=== PATIENT | male | born 1960 | race Caucasian/White ===

== ENCOUNTER 2019-07-14 07:40 | Day surgery (SDC) | payer BC ==
[~2019-07-14 07:40] MED LIST: Lactated Ringers 1,000 ML IV SCH; Sodium Chloride 0.9% 10 ML SDV IV PRN; Sodium Chloride 0.9% 10 ML Syringe FLUSH PRN; Sodium Chloride 0.9% 2.5 ML Syringe FLUSH PRN; Sugammadex Sodium 200 MG/2 ML VIAL ONE
[2019-07-14] MEDS ORDERED: Labetalol 100 MG/20 ML MDV IVPUSH ONE (08:37)
--- NOTE | 2019-07-14 08:46 | PCM.PREANE ---
Preanesthetic Assessment - Anesthesia/Transfusion/Family Hx Anesthesia History: Prior Anesthesia Without Reaction Family History of Anesthesia Reaction: No Transfusion History: No Prior Transfusion(s) - Review of Systems General: No Symptoms Pulmonary: No Symptoms Cardiovascular: No Symptoms Gastrointestinal: No Symptoms Neurological: No Symptoms Other: Reports: None - Physical Assessment Vital Signs: Last Vital Signs Temp 97.0 F 07/14/19 08:00 Pulse 107 H 07/14/19 08:00 Resp 16 07/14/19 08:00 BP 151/108 H 07/14/19 08:15 Pulse Ox 94 L 07/14/19 08:00 Height: 6 ft 1 in Weight: 132.903 kg ASA Class: 3 Mental Status: Alert & Oriented x3 Airway Class: Mallampati = 2 Dentition: Reports: Normal Dentition ROM/Head Extension: Full Lungs: Clear to Auscultation, Normal Respiratory Effort Cardiovascular: Regular Rate, Regular Rhythm - Allergies Allergies/Adverse Reactions: Allergies Allergy/AdvReac Type Severity Reaction Status Date / Time No Known Allergies Allergy Verified 07/08/19 09:17 - Anesthesia Plan Pre-Op Medication Ordered: Other (labetalol 20 mg iv) - Acknowledgements Anesthesia Type Planned: General Anesthesia Pt an Appropriate Candidate for the Planned Anesthesia: Yes Alternatives and Risks of Anesthesia Discussed w Pt/Guardian: Yes Pt/Guardian Understands and Agrees with Anesthesia Plan: Yes Additional Comments: willian prob list: htn- stopped lisinopril yest noon, diastolic BPs this am 97-110 on multiple readings. hr about 100 so fiona use labetalol to rx htn in pre op holding gout gerd/hh recurrant renal stones obesity with bmi=38 PLAN: pre op treatment of htn, GET PreAnesthesia Questionnaire HEENT History: Reports: Other (See Below) Other HEENT History: wears glasses Cardiovascular History: Reports: Hypertension Respiratory History: Reports: Other (See Below) Other Respiratory History: "may have sleep apnea but have not been tested" Gastrointestinal History: Reports: GERD Genitourinary History: Reports: Renal Calculus Musculoskeletal History: Reports: Back Pain, Chronic, Gout Other Musculoskeletal History: hx of back injury, 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 Neurological History: Reports: Neuropathy, Peripheral Psychiatric History: Reports: Anxiety, Depression Endocrine/Metabolic History: Reports: Obesity/BMI 30+ Hematologic History: Reports: Anemia Immunologic History: Reports: None Oncologic (Cancer) History: Reports: None Dermatologic History: Reports: None - Past Surgical History Head Surgeries/Procedures: Reports: None HEENT Surgical History: Reports: None Cardiovascular Surgical History: Reports: None Respiratory Surgical History: Reports: None GI Surgical History: Reports: None Male Surgical History: Reports: Kidney Stone Extraction Endocrine Surgical History: Reports: None Neurological Surgical History: Reports: Lumbar Spine Other Neurological Surgeries/Procedures: hx back surgery Musculoskeletal Surgical History: Reports: Knee Replacement Other Musculoskeletal Surgeries/Procedures:: lt knee replacement Oncologic Surgical History: Reports: None Dermatological Surgical History: Reports: None - SUBSTANCE USE Smoking Status *Q: Never Smoker - HOME MEDS Home Medications: Home Meds Allopurinol [Zyloprim] 300 mg PO DAILY 07/08/19 [History] Cholecalciferol (Vitamin D3) [Vitamin D3] 5,000 units PO DAILY 07/08/19 [History ] Ferrous Sulfate [Iron] 325 mg PO DAILY 07/08/19 [History] Gemfibrozil [Lopid] 600 mg PO BID 07/08/19 [History] Lisinopril 20 mg PO DAILY 07/08/19 [History] Niacin 500 mg PO DAILY 07/08/19 [History] Omeprazole 40 mg PO DAILY 07/08/19 [History] - CURRENT (IN HOUSE) MEDS Current Meds: Current Medications Lactated Ringer's (Ringers, Lactated) 1,000 mls @ 100 mls/hr IV ASDIRECTED GURU Sodium Chloride (Saline Flush) 10 ml FLUSH ASDIRECTED PRN PRN Reason: Keep Vein Open Sodium Chloride (Saline Flush) 2.5 ml FLUSH ASDIRECTED PRN PRN Reason: Keep Vein Open Sodium Chloride (Normal Saline) 10 ml IV ASDIRECTED PRN PRN Reason: IV Use Discontinued Medications Acetaminophen (Ofirmev) Confirm Administered Dose 100 mls @ as directed IV .STK- MED ONE Stop: 07/14/19 07:36 Labetalol HCl (Normodyne) 20 mg IVPUSH ONETIME ONE; Protocol Stop: 07/14/19 08:38 Sugammadex Sodium ([place]ridion) Confirm Administered Dose 200 mg .ROUTE .STK-MED ONE Stop: 07/14/19 07:36
[2019-07-14] MEDS ORDERED: Ondansetron 4 MG/2 ML SDV ONE (08:49)
[2019-07-14] MEDS ORDERED: fentaNYL 100 MCG/2 ML SDV ONE (08:49)
[2019-07-14] MEDS ORDERED: Propofol 200 MG/20 ML SDV ONE (08:49)
[2019-07-14] MEDS ORDERED: Midazolam 1 MG/ML 2 ML SDV ONE (08:50)
[2019-07-14] MEDS ORDERED: Glycopyrrolate 0.2 MG/ML SDV ONE (08:50)
[2019-07-14] MEDS ORDERED: Ketorolac 30 MG/ML SDV ONE (08:50)
[2019-07-14] MEDS ORDERED: Rocuronium 100 MG/10 ML Syringe ONE (08:50)
[2019-07-14] MEDS ORDERED: Phenylephrine/Normal Saline 100 MCG/ML 10 ML Syringe ONE (09:47)
[2019-07-14] MEDS ORDERED: ePHEDrine 50 MG/ML SDV ONE ×2 (09:50→10:04)
[2019-07-14] MEDS ORDERED: Morphine 4 MG/ML Syringe IVPUSH ONE (10:15)
--- NOTE | 2019-07-14 11:03 | PCM48HPAN ---
Post Anesthesia Note - EVALUATION WITHIN 48HRS OF ANESTHETIC Vital Signs in Normal Range: Yes Patient Participated in Evaluation: Yes Respiratory Function Stable: Yes Airway Patent: Yes Cardiovascular Function Stable: Yes Hydration Status Stable: Yes Pain Control Satisfactory: Yes Nausea and Vomiting Control Satisfactory: Yes Mental Status Recovered: Yes Vital Signs: Last Vital Signs Temp 97.7 F 07/14/19 10:30 Pulse 82 07/14/19 10:50 Resp 11 L 07/14/19 10:50 BP 118/72 07/14/19 10:50 Pulse Ox 95 07/14/19 10:50
--- NOTE | 2019-07-14 11:03 | PCM.POSTAN ---
POST ANESTHESIA ASSESSMENT - MENTAL STATUS Mental Status: Alert, Oriented - VITAL SIGNS Vital Signs: Last Vital Signs Temp 97.7 F 07/14/19 10:30 Pulse 82 07/14/19 10:50 Resp 11 L 07/14/19 10:50 BP 118/72 07/14/19 10:50 Pulse Ox 95 07/14/19 10:50 - RESPIRATORY Respiratory Status: Respiratory Rate WNL, Airway Patent, O2 Saturation Stable - CARDIOVASCULAR CV Status: Pulse Rate WNL, Blood Pressure Stable - GASTROINTESTINAL GI Status: No Symptoms - POST OP HYDRATION Hydration Status: Adequate & Stable
--- NOTE | 2019-07-14 16:57 | OR ---
SURGEON: Sagar Monae M.D. DATE OF PROCEDURE: 07/14/2019 PREOPERATIVE DIAGNOSIS: 1.5 cm right renal pelvis stone. POSTOPERATIVE DIAGNOSIS: 1.5 cm right renal pelvis stone. PROCEDURE PERFORMED: ESWL. DESCRIPTION OF PROCEDURE: The patient was given general anesthesia on the lithotripsy table. The position of the patient was adjusted, so the stone could be treated and eventually received 2400 shocks. At the end of the treatment, the shadow of the stone changed significantly. However, the intensity of the stone is still light that it was not possible to clearly identify the extent to which fragmentation occurred. With that done, the procedure was terminated and the patient was sent to the recovery room in stable condition. PLAN: I will see him this coming Thursday. We will do a CT scan of the abdomen and pelvis without contrast and go from there. NIR / MILLI /[id number]
[2019-07-14] MEDS ORDERED: Gemfibrozil 600 MG Tab PO SCH (21:00)
[2019-07-15] MEDS ORDERED: Allopurinol 300 MG Tab PO SCH (09:00)
[2019-07-15] MEDS ORDERED: Non-Formulary Medication 1 Each (Omeprazole [Omeprazole] 40 MG) PO SCH (09:00)
[2019-07-15] MEDS ORDERED: NIACIN 500 MG PO SCH (09:00)
[2019-07-15] MEDS ORDERED: Ferrous Sulfate 325 MG Tab PO SCH (09:00)
[2019-07-15] MEDS ORDERED: Non-Formulary Medication 1 Each (Lisinopril 20 MG) PO SCH (09:00)
[2019-07-15] MEDS ORDERED: CHOLECALCIFEROL 5000 UNIT PO SCH (09:00)
== END 2019-07-14 11:35 | disposition home or self-care (01) ==
LOC: MW.SDS 07:40
PROVIDERS: ATTEND Urology
DX: N20.0 Calculus of kidney (principal); E78.5 Hyperlipidemia, unspecified; K21.9 Gastro-esophageal reflux disease without esophagitis; M10.9 Gout, unspecified; R97.20 Elevated prostate specific antigen [PSA]; Z79.899 Other long term (current) drug therapy
CPT/HCPCS: J0131; J1885; J2250; J2370; J2405; J2704; J3010; J3490

== ENCOUNTER 2019-07-14 20:42 | Emergency (ER) | payer BC ==
--- NOTE | 2019-07-14 21:26 | EDM.PDOC ---
ED HPI GENERAL MEDICAL PROBLEM - General Chief Complaint: Genitourinary Problem Stated Complaint: COMPLICATIONS AFTER SURGERY Time Seen by Provider: 07/14/19 21:25 Source of Information: Reports: Patient History Limitations: Reports: No Limitations - History of Present Illness INITIAL COMMENTS - FREE TEXT/NARRATIVE: HISTORY AND PHYSICAL: History of present illness: Patient is a 58-year-old male presents to the ED with complaint of difficulty urinating and gross blood in his urine following lithotripsy. Patient had procedure done today with Dr. Monae. He states he since has been drinking a lot of fluids. He is not urinating much and when he does urinate it is sania blood. Review of systems: As per history of present illness and below otherwise all systems reviewed and negative. Past medical history: As per history of present illness and as reviewed below otherwise noncontributory. Surgical history: As per history of present illness and as reviewed below otherwise noncontributory. Social history: No reported history of drug or alcohol abuse. Family history: As per history of present illness and as reviewed below otherwise noncontributory. Physical exam: General: Patient sitting comfortably in no acute distress and nontoxic appearing HEENT: Atraumatic, normocephalic, pupils reactive, negative for conjunctival pallor or scleral icterus, mucous membranes moist, throat clear, neck supple, nontender, trachea midline. No meningeal signs. Lungs: Clear to auscultation, breath sounds equal bilaterally, chest nontender. Heart: S1S2, regular, negative for clicks, rubs, or overt murmur. Abdomen: Soft, nondistended, nontender. Negative for masses or hepatosplenomegaly. Negative for costovertebral tenderness. No rigidity, rebound , guarding. Pelvis: Stable nontender. Genitourinary: Deferred. Rectal: Deferred. Extremities: Atraumatic, negative for cords or calf pain. Neurovascular unremarkable. Neuro: Awake, alert, oriented. Cranial nerves II through XII unremarkable. Cerebellum unremarkable. Motor and sensory unremarkable throughout. Exam nonfocal. Notes: Discussed with Dr. Monae, he advised patient have a lorenz catheter placed and to remove this tomorrow. He is not concerned about the hematuria as this is expected after lithotripsy and does not believe he needs antibiotics at this time. Diagnostics: CBC, CMP, UA Therapeutics: Lorenz cathete Prescriptions: Impression: Difficulty urinating s/p lithotripsy Plan: Remove lorenz catheter tomorrow as instructed Follow up with Dr. Monae Return to ED as needed as discussed Definitive disposition and diagnosis as appropriate pending reevaluation and review of above. Left Abdominal Pain Score (Numeric/FACES): 6 - Related Data Allergies Allergy/AdvReac Type Severity Reaction Status Date / Time No Known Allergies Allergy Verified 07/08/19 09:17 Home Meds: Home Meds Allopurinol [Zyloprim] 300 mg PO DAILY 07/08/19 [History] Cholecalciferol (Vitamin D3) [Vitamin D3] 5,000 units PO DAILY 07/08/19 [History ] Ferrous Sulfate [Iron] 325 mg PO DAILY 07/08/19 [History] Gemfibrozil [Lopid] 600 mg PO BID 07/08/19 [History] Lisinopril 20 mg PO DAILY 07/08/19 [History] Niacin 500 mg PO DAILY 07/08/19 [History] Omeprazole 40 mg PO DAILY 07/08/19 [History] Past Medical History HEENT History: Reports: Other (See Below) Other HEENT History: wears glasses Cardiovascular History: Reports: Hypertension Respiratory History: Reports: Other (See Below) Other Respiratory History: "may have sleep apnea but have not been tested" Gastrointestinal History: Reports: GERD Genitourinary History: Reports: Renal Calculus Musculoskeletal History: Reports: Back Pain, Chronic, Gout Other Musculoskeletal History: hx of back injury, 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 Neurological History: Reports: Neuropathy, Peripheral Psychiatric History: Reports: Anxiety, Depression Endocrine/Metabolic History: Reports: Obesity/BMI 30+ Hematologic History: Reports: Anemia Immunologic History: Reports: None Oncologic (Cancer) History: Reports: None Dermatologic History: Reports: None - Infectious Disease History Infectious Disease History: Reports: Chicken Pox - Past Surgical History Head Surgeries/Procedures: Reports: None HEENT Surgical History: Reports: None Cardiovascular Surgical History: Reports: None Respiratory Surgical History: Reports: None GI Surgical History: Reports: None Male Surgical History: Reports: Kidney Stone Extraction, Lithotripsy (ESWL) Endocrine Surgical History: Reports: None Neurological Surgical History: Reports: Lumbar Spine Other Neurological Surgeries/Procedures: hx back surgery Musculoskeletal Surgical History: Reports: Knee Replacement Other Musculoskeletal Surgeries/Procedures:: lt knee replacement Oncologic Surgical History: Reports: None Dermatological Surgical History: Reports: None Social & Family History - Family History Family Medical History: Noncontributory - Tobacco Use Smoking Status *Q: Never Smoker Second Hand Smoke Exposure: No - Caffeine Use Caffeine Use: Reports: Soda - Recreational Drug Use Recreational Drug Use: No ED ROS GENERAL - Review of Systems Review Of Systems: ROS reveals no pertinent complaints other than HPI. ED EXAM, RENAL/ - Physical Exam Exam: See Below (see dictation) Course - Vital Signs Last Recorded V/S: Last Vital Signs Temp 97 F 07/14/19 20:56 Pulse 101 H 07/14/19 20:56 Resp 16 07/14/19 20:56 BP 133/79 07/14/19 20:56 Pulse Ox 95 07/14/19 20:56 - Orders/Labs/Meds Orders: Active Orders 24 hr Category Date Time Status Bladder Scan [RC] ASDIRECTED Care 07/14/19 21:11 Active CULTURE URINE [RM] Stat Lab 07/14/19 21:15 Received Labs: Laboratory Tests 07/14/19 07/14/19 07/14/19 Range/Units 21:15 21:37 21:37 WBC 8.93 (4.0-11.0) K/uL RBC 5.00 (4.50-5.90) M/uL Hgb 14.0 (13.0-17.0) g/dL Hct 44.1 (38.0-50.0) % MCV 88.2 (80.0-98.0) fL MCH 28.0 (27.0-32.0) pg MCHC 31.7 (31.0-37.0) g/dL RDW Std Deviation 48.9 (28.0-62.0) fl RDW Coeff of [place]lim[place] 15 (11.0-15.0) % Plt Count 214 (150-400) K/uL MPV 10.20 (7.40-12.00) fL Neut % (Auto) 62.9 (48.0-80.0) % Lymph % (Auto) 18.1 (16.0-40.0) % [place] % (Auto) 12.7 (0.0-15.0) % Eos % (Auto) 5.9 (0.0-7.0) % Baso % (Auto) 0.4 (0.0-1.5) % Neut # (Auto) 5.6 (1.4-5.7) K/uL Lymph # (Auto) 1.6 (0.6-2.4) K/uL [place] # (Auto) 1.1 H (0.0-0.8) K/uL Eos # (Auto) 0.5 (0.0-0.7) K/uL Baso # (Auto) 0.0 (0.0-0.1) K/uL Nucleated RBC % 0.0 /100WBC Nucleated RBCs # 0 K/uL Sodium 140 (136-148) mmol/L Potassium 3.9 (3.5-5.1) mmol/L Chloride 104 (98-107) mmol/L Carbon Dioxide 24.6 (21.0-32.0) mmol/L BUN 14 (7.0-18.0) mg/dL Creatinine 1.2 (0.8-1.3) mg/dL Est Cr Clr Drug Dosing 76.76 mL/min Estimated GFR (MDRD) > 60.0 ml/min Glucose 120 H (74-106) mg/dL Calcium 9.2 (8.5-10.1) mg/dL Total Bilirubin 0.6 (0.2-1.0) mg/dL AST 28 (15-37) IU/L ALT 23 (14-63) IU/L Alkaline Phosphatase 116 (46-116) U/L Total Protein 6.8 (6.4-8.2) g/dL Albumin 3.1 L (3.4-5.0) g/dL Globulin 3.7 (2.6-4.0) g/dL Albumin/Globulin Ratio 0.8 L (0.9-1.6) Urine Color BROWN Urine Appearance CLOUDY Urine pH 6.5 (5.0-8.0) Ur Specific [place] 1.025 (1.001-1.035) Urine Protein >=300 H (NEGATIVE) mg/dL Urine Glucose (UA) NEGATIVE (NEGATIVE) mg/dL Urine Ketones 15 H (NEGATIVE) mg/dL Urine Occult Blood LARGE H (NEGATIVE) Urine Nitrite POSITIVE H (NEGATIVE) Urine Bilirubin MODERATE H (NEGATIVE) Urine Ictotest NEGATIVE Urine Urobilinogen 2.0 H (<2.0) EU/dL Ur Leukocyte Esterase SMALL H (NEGATIVE) Urine RBC TOO NUMEROUS TO CT (0-2/HPF) Urine WBC 1-3 (0-5/HPF) Ur Epithelial Cells RARE (NONE-FEW) Amorphous Sediment MODERATE (NEGATIVE) Urine Bacteria 3+ H (NEGATIVE) Urine Mucus LIGHT (NONE-MOD) Departure - Departure Time of Disposition: 22:30 Disposition: Home, Self-Care 01 Condition: Good Clinical Impression: Difficulty urinating, Status post laser lithotripsy of ureteral calculus - Discharge Information Referrals: Mikel Rodrigues MD [Primary Care Provider] - Forms: ED Department Discharge Additional Instructions: The following information is given to patients seen in the emergency department who are being discharged to home. This information is to outline your options for follow-up care. We provide all patients seen in our emergency department with a follow-up referral. The need for follow-up, as well as the timing and circumstances, are variable depending upon the specifics of your emergency department visit. If you don't have a primary care physician on staff, we will provide you with a referral. We always advise you to contact your personal physician following an emergency department visit to inform them of the circumstance of the visit and for follow-up with them and/or the need for any referrals to a consulting specialist. The emergency department will also refer you to a specialist when appropriate. This referral assures that you have the opportunity for follow-up care with a specialist. All of these measure are taken in an effort to provide you with optimal care, which includes your follow-up. Under all circumstances we always encourage you to contact your private physician who remains a resource for coordinating your care. When calling for follow-up care, please make the office aware that this follow-up is from your recent emergency room visit. If for any reason you are refused follow-up, please contact the [facility] Emergency Department at and asked to speak to the emergency department charge nurse. [facility] [address] [place] [id number] [facility] [address] [place] [id number] [facility] - Urology [facility] [place] [address] Remove lorenz catheter tomorrow as instructed Follow up with Dr. Monae Return to ED as needed as discussed - My Orders Last 24 Hours: My Active Orders 07/14/19 21:11 Bladder Scan [RC] ASDIRECTED 07/14/19 21:15 CULTURE URINE [RM] Stat - Assessment/Plan Last 24 Hours: My Active Orders 07/14/19 21:11 Bladder Scan [RC] ASDIRECTED 07/14/19 21:15 CULTURE URINE [RM] Stat
[2019-07-14 22:07] LABS: BLOOD UREA NITROGEN,BUN 14 mg/dL (7.0-18.0); CARBON DIOXIDE,CO2 24.6 mmol/L (21.0-32.0); CHLORIDE,CL 104 mmol/L (98-107); GLUCOSE RANDOM 120 mg/dL (74-106); POTASSIUM,K 3.9 mmol/L (3.5-5.1); SODIUM,NA 140 mmol/L (136-148)
== END 2019-07-14 23:20 | disposition home or self-care (01) ==
LOC: MW.ED 20:42
DX: R39.198 Other difficulties with micturition (principal); I10 Essential (primary) hypertension; E66.9 Obesity, unspecified; Z98.890 Other specified postprocedural states; Z87.442 Personal history of urinary calculi; Z79.899 Other long term (current) drug therapy; Z68.38 Body mass index [BMI] 38.0-38.9, adult
CPT/HCPCS: 36415; 80053; 81001; 85025; 87086; 99283

== ENCOUNTER 2019-12-21 06:48 | Day surgery (SDC) | payer MEDICARE, OTHER ==
[~2019-12-21 06:48] MED LIST changes: -Sodium Chloride 0.9% 10 ML SDV IV PRN; -Sodium Chloride 0.9% 10 ML Syringe FLUSH PRN; -Sodium Chloride 0.9% 2.5 ML Syringe FLUSH PRN; -Sugammadex Sodium 200 MG/2 ML VIAL ONE; +ceFAZolin 2 GM in Premix Bag 1 BAG IV ONE
[2019-12-21] MEDS ORDERED: Propofol 200 MG/20 ML SDV ONE (07:02)
[2019-12-21] MEDS ORDERED: Midazolam 1 MG/ML 2 ML SDV ONE (07:03)
[2019-12-21] MEDS ORDERED: fentaNYL 100 MCG/2 ML SDV ONE ×2 (07:03→07:35)
[2019-12-21] MEDS ORDERED: Rocuronium 100 MG/10 ML Syringe ONE (07:11)
[2019-12-21] MEDS ORDERED: Lidocaine 2% 5 ML SDV ONE (07:11)
[2019-12-21] MEDS ORDERED: Dexamethasone 4 MG/ML 5 ML MDV ONE (07:11)
[2019-12-21] MEDS ORDERED: Ondansetron 4 MG/2 ML SDV ONE (07:11)
[2019-12-21] MEDS ORDERED: Succinylcholine 200 MG/10 ML MDV ONE (07:11)
[2019-12-21] MEDS ORDERED: Lidocaine 1% with EPINEPHrine 1:100,000 10 ML MDV ONE (07:18)
[2019-12-21] MEDS ORDERED: Bupivacaine 0.25%/EPINEPHrine 1:200,000 10 ML SDV ONE ×3 (07:19→08:39)
[2019-12-21] MEDS ORDERED: Naloxone 0.4 MG/ML Syringe IVPUSH PRN (07:26)
[2019-12-21] MEDS ORDERED: Atropine 0.1 MG/ML 10 ML Syringe IVPUSH PRN ×2 (07:26)
[2019-12-21] MEDS ORDERED: Albuterol 0.083% 2.5 MG/3 ML Neb Soln NEB PRN (07:26)
[2019-12-21] MEDS ORDERED: fentaNYL 100 MCG/2 ML SDV IVPUSH PRN (07:26)
[2019-12-21] MEDS ORDERED: EPINEPHrine 1:10,000 1 MG/10 ML Syringe IVPUSH PRN (07:26)
[2019-12-21] MEDS ORDERED: 50% Dextrose in Water 50 ML Syringe IVPUSH PRN (07:26)
--- NOTE | 2019-12-21 07:26 | PCM.PREANE ---
Preanesthetic Assessment - Anesthesia/Transfusion/Family Hx Anesthesia History: Prior Anesthesia Without Reaction Family History of Anesthesia Reaction: No Transfusion History: No Prior Transfusion(s) Intubation History: Unknown - Review of Systems General: No Symptoms Pulmonary: No Symptoms Cardiovascular: No Symptoms Gastrointestinal: No Symptoms Neurological: No Symptoms Other: Reports: None - Physical Assessment Height: 6 ft 1 in Weight: 117.027 kg ASA Class: 2 Mental Status: Alert & Oriented x3 Airway Class: Mallampati = 2 Dentition: Reports: Normal Dentition Thyro-Mental Finger Breadths: 3 Mouth Opening Finger Breadths: 3 ROM/Head Extension: Full Lungs: Clear to Auscultation, Normal Respiratory Effort Cardiovascular: Regular Rate, Regular Rhythm - Allergies Allergies/Adverse Reactions: Allergies Allergy/AdvReac Type Severity Reaction Status Date / Time No Known Allergies Allergy Verified 12/16/19 08:28 - Blood Blood Available: No - Anesthesia Plan Pre-Op Medication Ordered: None - Acknowledgements Anesthesia Type Planned: General Anesthesia Pt an Appropriate Candidate for the Planned Anesthesia: Yes Alternatives and Risks of Anesthesia Discussed w Pt/Guardian: Yes Pt/Guardian Understands and Agrees with Anesthesia Plan: Yes PreAnesthesia Questionnaire HEENT History: Reports: Other (See Below) Other HEENT History: wears glasses, has very dry eyes Cardiovascular History: Reports: High Cholesterol, Hypertension Respiratory History: Reports: Other (See Below) Other Respiratory History: thinks he may have sleep apnea but has not been tested Gastrointestinal History: Reports: GERD Genitourinary History: Reports: Renal Calculus Musculoskeletal History: Reports: Back Pain, Chronic, Fracture, Gout Other Musculoskeletal History: hx of fx back Neurological History: Reports: Concussion, Neuropathy, Peripheral Other Neuro History: 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 Psychiatric History: Reports: Anxiety Endocrine/Metabolic History: Reports: Obesity/BMI 30+ (BMI 34) Hematologic History: Reports: Anemia Immunologic History: Reports: None Oncologic (Cancer) History: Reports: None Dermatologic History: Reports: None - Infectious Disease History Infectious Disease History: Reports: Chicken Pox - Past Surgical History Head Surgeries/Procedures: Reports: None GI Surgical History: Reports: Hernia Repair/Other (umbilical) Male Surgical History: Reports: Lithotripsy (ESWL) Neurological Surgical History: Reports: Discectomy, Lumbar Spine Musculoskeletal Surgical History: Reports: Knee Replacement Other Musculoskeletal Surgeries/Procedures:: Left TKA '17 - SUBSTANCE USE Smoking Status *Q: Never Smoker Recreational Drug Use History: No - HOME MEDS Home Medications: Home Meds Cholecalciferol (Vitamin D3) [Vitamin D3] 5,000 units PO DAILY 07/08/19 [History ] Lisinopril 20 mg PO DAILY 07/08/19 [History] Niacin 500 mg PO DAILY 07/08/19 [History] Omeprazole 40 mg PO DAILY 07/08/19 [History] allopurinoL [Zyloprim] 300 mg PO DAILY 07/08/19 [History] gemfibroziL [Lopid] 600 mg PO BID 07/08/19 [History] - CURRENT (IN HOUSE) MEDS Current Meds: Current Medications Lactated Ringer's (Ringers, Lactated) 1,000 mls @ 125 mls/hr IV ASDIRECTED GURU Discontinued Medications Dexamethasone (Dexamethasone) Confirm Administered Dose 20 mg .ROUTE .STK-MED ONE Stop: 12/21/19 07:12 Fentanyl (Sublimaze) Confirm Administered Dose 100 mcg .ROUTE .STK-MED ONE Stop: 12/21/19 07:04 Cefazolin Sodium/Dextrose 2 gm (/ Premix) 50 mls @ 100 mls/hr IV ONETIME ONE Stop: 12/21/19 05:29 Lidocaine (Xylocaine-Mpf 2%) Confirm Administered Dose 5 ml .ROUTE .STK-MED ONE Stop: 12/21/19 07:12 Midazolam HCl (Versed 1 Mg/Ml) Confirm Administered Dose 2 mg .ROUTE .STK-MED ONE Stop: 12/21/19 07:04 Ondansetron HCl (Zofran) Confirm Administered Dose 4 mg .ROUTE .STK-MED ONE Stop: 12/21/19 07:12 Propofol (Diprivan 20 Ml) Confirm Administered Dose 200 mg .ROUTE .STK-MED ONE Stop: 12/21/19 07:03 Rocuronium [place] (Zemuron) Confirm Administered Dose 100 mg .ROUTE .STK-MED ONE Stop: 12/21/19 07:12 Succinylcholine Chloride (Quelicin) Confirm Administered Dose 200 mg .ROUTE .STK -MED ONE Stop: 12/21/19 07:12
[2019-12-21] MEDS ORDERED: Ondansetron 4 MG/2 ML SDV IVPUSH PRN (07:27)
[2019-12-21] MEDS: fentaNYL 100 MCG/2 ML SDV IVPUSH PRN ×5 (07:36→11:37)
[2019-12-21] MEDS ORDERED: ceFAZolin/Dextrose,Iso-Osmotic 2 GM/50 ML Duplex Bag IV ONE (08:05)
[2019-12-21] MEDS ORDERED: Sodium Chloride 0.9% 20 ML ONE (09:31)
[2019-12-21] MEDS ORDERED: ePHEDrine 50 MG/ML SDV ONE (09:31)
[2019-12-21] MEDS ORDERED: Vasopressin 20 Units/1 ML MDV ONE (09:32)
[2019-12-21] MEDS ORDERED: Neostigmine Methylsulfate 1 MG/ML 5 ML Syringe ONE (10:27)
[2019-12-21] MEDS ORDERED: Glycopyrrolate 0.2 MG/ML SDV ONE (10:27)
[2019-12-21] MEDS: HYDROmorphone 2 MG/ML Syringe IVPUSH PRN ×2 (10:58→11:17)
[2019-12-21] MEDS ORDERED: Ketorolac 30 MG/ML SDV ONE (11:22)
[2019-12-21] MEDS ORDERED: Acetaminophen/oxyCODONE 325-10 MG Tab PO PRN (11:25)
[2019-12-21] MEDS ORDERED: Ketorolac 30 MG/ML SDV IVPUSH ONE (11:28)
--- NOTE | 2019-12-21 11:38 | PCM.OPNOTE ---
- General Post-Op/Procedure Note Date of Surgery/Procedure: 12/21/19 Operative Procedure(s): RIH repair w mesh Findings: large direct and indirect ing hernia, repair w large size mesh and plug; r hernia; see [id number] Pre Op Diagnosis: rih Post-Op Diagnosis: Same Anesthesia Technique: General ET Tube Primary Surgeon: Cedric Landaverde Pathology: sent Complications: None Condition: Good
--- NOTE | 2019-12-21 12:06 | PCM.POSTAN ---
POST ANESTHESIA ASSESSMENT - MENTAL STATUS Mental Status: Alert, Oriented - VITAL SIGNS Vital Signs: Last Vital Signs Temp 36.7 C 12/21/19 11:45 Pulse 96 12/21/19 11:45 Resp 14 12/21/19 11:45 BP 114/70 12/21/19 11:45 Pulse Ox 97 12/21/19 11:45 - RESPIRATORY Respiratory Status: Respiratory Rate WNL, Airway Patent, O2 Saturation Stable - CARDIOVASCULAR CV Status: Pulse Rate WNL, Blood Pressure Stable - GASTROINTESTINAL GI Status: No Symptoms - PAIN Pain Score: 4 - POST OP HYDRATION Hydration Status: Adequate & Stable - OBSERVATIONS Free Text/Narrative:: No anesthesia problems
[2019-12-21] MEDS ORDERED: Famotidine 20 MG/2 ML SDV IVPUSH ONE (14:42)
--- NOTE | 2019-12-21 15:38 | PCM48HPAN ---
Post Anesthesia Note - EVALUATION WITHIN 48HRS OF ANESTHETIC Vital Signs in Normal Range: Yes Patient Participated in Evaluation: Yes Respiratory Function Stable: Yes Airway Patent: Yes Cardiovascular Function Stable: Yes Hydration Status Stable: Yes Pain Control Satisfactory: Yes Nausea and Vomiting Control Satisfactory: Yes Mental Status Recovered: Yes Vital Signs: Last Vital Signs Temp 36.7 C 12/21/19 11:45 Pulse 113 H 12/21/19 14:23 Resp 16 12/21/19 14:23 BP 105/55 L 12/21/19 14:23 Pulse Ox 95 12/21/19 14:23 - COMMENTS/OBSERVATIONS Free Text/Narrative:: No anesthesia problems
--- NOTE | 2019-12-22 14:44 | OR ---
SURGEON: Cedric Landaverde MD DATE OF PROCEDURE: 12/21/2019 PREOPERATIVE DIAGNOSIS: Inguinal hernia on the right. POSTOPERATIVE DIAGNOSIS: Inguinal hernia on the right. PROCEDURE PERFORMED: Repair with mesh and plug. PRIMARY SURGEON: Cedric Landaverde MD. COMPLICATIONS: None. PROCEDURE IN DETAIL: The patient was taken to the operating room and placed in the supine position. Upon induction of general endotracheal anesthesia, the patient's groin and inguinal area were prepped and draped in a sterile fashion. The scrotum was placed on top of the drape in case it needed to be maneuvered. An IV antibiotic was given prophylactically and after assessment of appropriate landmark, a transverse incision was made which was about a palm distance above inguinal crease, pt is obese; This was then carefully taken down past the Elizabeth's fascia and exposed the external oblique where thecord is. The external ring was also identified and using a 15 blade, a small darline was made right on top of the cord and then using a Metzenbaum scissors, carefully opened up the fiber along its direction all the way to the external ring. The spermatic cord was then carefully lifted up from the inguinal canal. Because of chronicity, the cord was scarred down to inguinal floor. A Burke drain was then used to hold on to manipulate the cord and carefully dissect out from the inguinal floor. The cremasteric muscle was then opened up. Careful examined of the cord, dissected down the cremasteric muscle, a large glistening whitish hernia sac in the medial anterior aspect of the floor, next to the cord was located. This was carefully dissected down all the way to the internal ring. Open up the sac, omentum was found inside; high ligation was done w 2 'O' silk, A large plug was inserted into the direct hernia and followed with a mesh to reinforce the inguinal floor. Pt also has a mod size of direct inguinal hernia, large enough for 2 fingers opening. The mesh was then anchored down by using 2-0 Prolene stitches to the periosteum of the pubic symphysis, then running down to the lateral aspect of the rectus muscle. The lateral part of the mesh was then anchored to the Jignesh ligament, again using 2-0 Prolene. The last few stitches also anchored the plug to make sure the plug is not migrating. There was one stitch placed at the end of the two tails. Where the cord exits out, a stitch was placed in the two tails to repair the internal ring. Upon conclusion of surgery, I used a finger to make sure the ring is not too tight and not too loose, followed with some irrigation. The external oblique was then repaired by use of 2-0 Vicryl and the recreation external ring was also tested, not too tight, not too loose, followed with 2-0 Vicryl and closed the Elizabeth's fascia and the skin stapled to approximate the skin, followed by appropriate dressing. The patient was then awakened, extubated and transferred to recovery room in a hemodynamically stable condition. The patient tolerated the procedure well. There were no intraoperative complications. Dr. Landaverde was present through the whole procedure. Just before surgery, a timeout was called. The patient was identified and procedure identified and procedure started. As always, thank you for the kind referral. FINDINGS: The patient has large direct and indirect hernia, is as big as 2 fingers, and also the patient has an indirect hernia as big as a nondalton, so the patient has a pantaloon hernia, repaired with a large mesh and plug. Intraoperative findings as dictated above. AZAM / MILLI /[id number] FLORENCIA
== END 2019-12-21 15:30 | disposition home or self-care (01) ==
LOC: MW.SDS 06:48
PROVIDERS: ATTEND Surgery
DX: K40.90 Unilateral inguinal hernia, without obstruction or gangrene, not specified as recurrent (principal); K21.9 Gastro-esophageal reflux disease without esophagitis; I10 Essential (primary) hypertension; E78.00 Pure hypercholesterolemia, unspecified; E66.9 Obesity, unspecified; Z79.899 Other long term (current) drug therapy; Z98.890 Other specified postprocedural states; Z68.34 Body mass index [BMI] 34.0-34.9, adult
CPT/HCPCS: 49505; 88302; J0131; J0330; J0690; J1100; J1170; J1885; J2001; J2250; J2405; J2704; J3010; J3490; J7120

== ENCOUNTER 2019-12-28 06:26 | Emergency (ER) | payer MEDICARE, OTHER ==
--- NOTE | 2019-12-28 06:52 | EDM.PDOC ---
<Obdulia Durbin - Last Filed: 12/28/19 06:54> ED HPI GENERAL MEDICAL PROBLEM - General Chief Complaint: General Stated Complaint: COMPLICATION- RECENT HERNIA SURGERY Time Seen by Provider: 12/28/19 07:10 Source of Information: Reports: Patient History Limitations: Reports: No Limitations - History of Present Illness INITIAL COMMENTS - FREE TEXT/NARRATIVE: HISTORY OF PRESENT ILLNESS: Patient is a 59-year-old male who presents to the ER for right sided suprapubic pain. Patient is status post hernia repair surgery on 12/21/[address] Landaverde. States that, since last night, he has had pain to the area and feels firmness just inferior to the incision. Rates pain as 4 out of 10 in severity and describes it as "something slipping inside". Denies any fevers or chills. Nausea vomiting, diarrhea or constipation. Denies any urinary symptoms. No chest pain or dyspnea. Is not on aspirin or anticoagulants. REVIEW OF SYSTEMS: Other than the symptoms associated with the present events, the following is reported with regard to recent health: General: (-) fever. HENT: (-) congestion. Respiratory: (-) cough. Cardiovascular: (-) chest pain. GI: (+) abdominal pain. : (-) urinary complaints. Musculoskeletal: (-) other aches or pains. Endocrine: (-) generalized weakness. Neurological: (-) localized weakness. Skin: (-) rash (+) incision PAST MEDICAL HISTORY: reviewed as per nursing notes SOCIAL HISTORY: reviewed as per nursing notes, MEDICATIONS: Per nurse's note ALLERGIES: Per nurse's note, reviewed by me PHYSICAL EXAMINATION: GENERALIZED APPEARANCE: well developed, well nourished in no distress VITAL SIGNS: Per nurse's note, reviewed by me SKIN: Warm, dry; (-) cyanosis; (-) rash. incision with dianne right suprapubic area c/d/i. no discharge. . HEAD: (-) scalp swelling, (-) tenderness. EYES: (-) conjunctival pallor, (-) scleral icterus. ENMT: (-) stridor; mucous membranes moist. NECK: (-) tenderness, (-) stiffness, CHEST AND RESPIRATORY: (-) rales, (-) rhonchi, (-) wheezes; breath sounds equal bilaterally. HEART AND CARDIOVASCULAR: (-) irregularity; (-) murmur, (-) gallop. ABDOMEN AND GI: Soft; (+)diffuse mild tenderness, maximal tenderness right suprapubic region near incision. induration just inferior to incision (-) guarding, (-) rebound, (-) palpable masses, (-) CVAT EXTREMITIES: (-) deformity, (-) edema. NEURO AND PSYCH: Alert. Cranial nerves grossly intact; strength symmetric. gait steady DIAGNOSTICS: CT abd/pelvis: pending CBC, CMP: pending EMERGENCY DEPARTMENT COURSE AND TREATMENT: Patient's condition remained stable during Emergency Department evaluation. Case d/w Dr. Landaverde who would like patient to have CT abd/pelvis without contrast and CBC, CMP PLAN AND FOLLOW-UP: Care transferred to Dr. Gonzalez at 0700 pending above and discussion with Dr. Landaverde. right groin Pain Score (Numeric/FACES): 6 - Related Data Allergies Allergy/AdvReac Type Severity Reaction Status Date / Time No Known Allergies Allergy Verified 12/16/19 08:28 Home Meds: Home Meds Cholecalciferol (Vitamin D3) [Vitamin D3] 5,000 units PO DAILY 07/08/19 [History ] Lisinopril 20 mg PO DAILY 07/08/19 [History] Niacin 500 mg PO DAILY 07/08/19 [History] Omeprazole 40 mg PO DAILY 07/08/19 [History] allopurinoL [Zyloprim] 300 mg PO DAILY 07/08/19 [History] gemfibroziL [Lopid] 600 mg PO BID 07/08/19 [History] Past Medical History HEENT History: Reports: Other (See Below) Other HEENT History: wears glasses, has very dry eyes Cardiovascular History: Reports: High Cholesterol, Hypertension Respiratory History: Reports: Other (See Below) Other Respiratory History: thinks he may have sleep apnea but has not been tested Gastrointestinal History: Reports: GERD, Hiatal Hernia Genitourinary History: Reports: Renal Calculus Musculoskeletal History: Reports: Back Pain, Chronic, Fracture, Gout Other Musculoskeletal History: hx of fx back Neurological History: Reports: Concussion, Neuropathy, Peripheral Other Neuro History: 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 Psychiatric History: Reports: Anxiety Endocrine/Metabolic History: Reports: Obesity/BMI 30+ Hematologic History: Reports: Anemia Immunologic History: Reports: None Oncologic (Cancer) History: Reports: None Dermatologic History: Reports: None - Infectious Disease History Infectious Disease History: Reports: Chicken Pox - Past Surgical History Head Surgeries/Procedures: Reports: None GI Surgical History: Reports: Hernia, Inguinal, Hernia Repair/Other Male Surgical History: Reports: Lithotripsy ([facility]) Neurological Surgical History: Reports: Discectomy, Lumbar Spine Musculoskeletal Surgical History: Reports: Knee Replacement Other Musculoskeletal Surgeries/Procedures:: Left TKA '17 Social & Family History - Family History Family Medical History: Noncontributory - Tobacco Use Smoking Status *Q: Never Smoker - Caffeine Use Caffeine Use: Reports: Soda - Recreational Drug Use Recreational Drug Use: No ED ROS GENERAL - Review of Systems Review Of Systems: See Below (see dictation) ED EXAM, GENERAL - Physical Exam Exam: See Below (see dictation) Course - Vital Signs Last Recorded V/S: Last Vital Signs Temp 96.8 F L 12/28/19 06:31 Pulse 90 12/28/19 06:31 Resp 18 12/28/19 06:31 BP 137/90 12/28/19 06:31 Pulse Ox 96 12/28/19 06:31 - Orders/Labs/Meds Labs: Laboratory Tests 12/28/19 12/28/19 Range/Units 07:57 07:57 WBC 8.46 (4.0-11.0) K/uL RBC 5.44 (4.50-5.90) M/uL Hgb 15.4 (13.0-17.0) g/dL Hct 48.2 (38.0-50.0) % MCV 88.6 (80.0-98.0) fL MCH 28.3 (27.0-32.0) pg MCHC 32.0 (31.0-37.0) g/dL RDW Std Deviation 44.5 (28.0-62.0) fl RDW Coeff of Olimpia 14 (11.0-15.0) % Plt Count 322 (150-400) K/uL MPV 10.00 (7.40-12.00) fL Neut % (Auto) 65.8 (48.0-80.0) % Lymph % (Auto) 17.6 (16.0-40.0) % Carolina % (Auto) 10.9 (0.0-15.0) % Eos % (Auto) 5.3 (0.0-7.0) % Baso % (Auto) 0.4 (0.0-1.5) % Neut # (Auto) 5.6 (1.4-5.7) K/uL Lymph # (Auto) 1.5 (0.6-2.4) K/uL Carolina # (Auto) 0.9 H (0.0-0.8) K/uL Eos # (Auto) 0.5 (0.0-0.7) K/uL Baso # (Auto) 0.0 (0.0-0.1) K/uL Nucleated RBC % 0.0 /100WBC Nucleated RBCs # 0 K/uL Sodium 140 (136-148) mmol/L Potassium 4.0 (3.5-5.1) mmol/L Chloride 103 (98-107) mmol/L Carbon Dioxide 26.8 (21.0-32.0) mmol/L BUN 19 H (7.0-18.0) mg/dL Creatinine 1.1 (0.8-1.3) mg/dL Est Cr Clr Drug Dosing 82.72 mL/min Estimated GFR (MDRD) > 60.0 ml/min Glucose 112 H (74-106) mg/dL Calcium 11.0 H (8.5-10.1) mg/dL Departure - Departure Disposition: Home, Self-Care 01 Clinical Impression: Status post hernia repair - Discharge Information Instructions: Hernia, Adult Referrals: Mikel Rodrigues MD [Primary Care Provider] - Forms: ED Department Discharge Additional Instructions: Follow up with Dr. Landaverde as planned. Rest for the next 24 hours. Return to the ED if your condition gets worse or should you have any questions or concerns. The following information is given to patients seen in the emergency department who are being discharged to home. This information is to outline your options for follow-up care. We provide all patients seen in our emergency department with a follow-up referral. The need for follow-up, as well as the timing and circumstances, are variable depending upon the specifics of your emergency department visit. If you don't have a primary care physician on staff, we will provide you with a referral. We always advise you to contact your personal physician following an emergency department visit to inform them of the circumstance of the visit and for follow-up with them and/or the need for any referrals to a consulting specialist. The emergency department will also refer you to a specialist when appropriate. This referral assures that you have the opportunity for follow-up care with a specialist. All of these measure are taken in an effort to provide you with optimal care, which includes your follow-up. Under all circumstances we always encourage you to contact your private physician who remains a resource for coordinating your care. When calling for follow-up care, please make the office aware that this follow-up is from your recent emergency room visit. If for any reason you are refused follow-up, please contact the [facility] Emergency Department at and asked to speak to the emergency department charge nurse. Sepsis Event Note - Evaluation Sepsis Screening Result: No Definite Risk - Focused Exam Vital Signs: Vital Signs Temp Pulse Resp BP Pulse Ox 12/28/19 06:31 96.8 F L 90 18 137/90 96 Date Exam was Performed: 12/28/19 Time Exam was Performed: 06:54 <Preston Gonzalez - Last Filed: 12/28/19 08:51> ED HPI GENERAL MEDICAL PROBLEM - General Source of Information: Reports: Patient History Limitations: Reports: No Limitations - History of Present Illness Onset: Other (stated that he felt something slip in the right pubic surgical area last night. He denies any pain at this time. Dr. Landaverde did see him in the ED this morning.) Duration: Improving Location: Reports: Other (right suprapubic area incision site) Severity: Mild (very mild) ED ROS GENERAL - Review of Systems Constitutional: Reports: No Symptoms HEENT: Reports: No Symptoms Respiratory: Reports: No Symptoms Cardiovascular: Reports: No Symptoms Endocrine: Reports: No Symptoms GI/Abdominal: Reports: No Symptoms : Reports: No Symptoms Musculoskeletal: Reports: No Symptoms Skin: Reports: No Symptoms Neurological: Reports: No Symptoms ED EXAM, GENERAL - Physical Exam Exam: See Below Exam Limited By: No Limitations General Appearance: Alert, WD/WN, No Apparent Distress Nose: Normal Inspection, Normal Mucosa, No Blood Throat/Mouth: Normal Inspection, Normal Lips, Normal Teeth, Normal Gums, Normal Oropharynx, Normal Voice, No Airway Compromise Head: Atraumatic, Normocephalic Neck: Normal Inspection, Supple, Non-Tender, Full Range of Motion Respiratory/Chest: No Respiratory Distress, Lungs Clear, Normal Breath Sounds, No Accessory Muscle Use, Chest Non-Tender Cardiovascular: Normal Peripheral Pulses, Regular Rate, Rhythm, No Edema, No Gallop, No JVD, No Murmur, No Rub GI/Abdominal: Normal Bowel Sounds, Soft, Non-Tender, Other (about a 5 inch healing incision noted in the right suprapubic area. The wound looks fine with dianne noted. No tenderness around the wound area.) (Male) Exam: Other (repair of right inguinal hernia noted. The incision looks clean and healing well.) Rectal (Males) Exam: Deferred Back Exam: Normal Inspection Extremities: Normal Inspection, Normal Range of Motion, Normal Capillary Refill Neurological: Alert, Oriented, CN II-XII Intact, Normal Reflexes, No Motor/ Sensory Deficits Skin Exam: Warm, Dry, Intact, Normal Color, No Rash Course - Vital Signs Text/Narrative:: I have reviewed all diagnostic test including the CT scan of the abdomen which was unremarkable. I talked with Dr. Landaverde regarding this patient at 8:20AM. He will see the patient in 10-15 minutes before discharge. He will be discharged with routine follow up with Dr. Landaverde. The patient agrees with the discharge plan. - Orders/Labs/Meds Labs: Laboratory Tests 12/28/19 12/28/19 Range/Units 07:57 07:57 WBC 8.46 (4.0-11.0) K/uL RBC 5.44 (4.50-5.90) M/uL Hgb 15.4 (13.0-17.0) g/dL Hct 48.2 (38.0-50.0) % MCV 88.6 (80.0-98.0) fL MCH 28.3 (27.0-32.0) pg MCHC 32.0 (31.0-37.0) g/dL RDW Std Deviation 44.5 (28.0-62.0) fl RDW Coeff of Olimpia 14 (11.0-15.0) % Plt Count 322 (150-400) K/uL MPV 10.00 (7.40-12.00) fL Neut % (Auto) 65.8 (48.0-80.0) % Lymph % (Auto) 17.6 (16.0-40.0) % Carolina % (Auto) 10.9 (0.0-15.0) % Eos % (Auto) 5.3 (0.0-7.0) % Baso % (Auto) 0.4 (0.0-1.5) % Neut # (Auto) 5.6 (1.4-5.7) K/uL Lymph # (Auto) 1.5 (0.6-2.4) K/uL Carolina # (Auto) 0.9 H (0.0-0.8) K/uL Eos # (Auto) 0.5 (0.0-0.7) K/uL Baso # (Auto) 0.0 (0.0-0.1) K/uL Nucleated RBC % 0.0 /100WBC Nucleated RBCs # 0 K/uL Sodium 140 (136-148) mmol/L Potassium 4.0 (3.5-5.1) mmol/L Chloride 103 (98-107) mmol/L Carbon Dioxide 26.8 (21.0-32.0) mmol/L BUN 19 H (7.0-18.0) mg/dL Creatinine 1.1 (0.8-1.3) mg/dL Est Cr Clr Drug Dosing 82.72 mL/min Estimated GFR (MDRD) > 60.0 ml/min Glucose 112 H (74-106) mg/dL Calcium 11.0 H (8.5-10.1) mg/dL Departure - Departure Time of Disposition: 08:51 Condition: Good - Discharge Information *PRESCRIPTION DRUG MONITORING PROGRAM REVIEWED*: Yes *COPY OF PRESCRIPTION DRUG MONITORING REPORT IN PATIENT JORDYN: Yes Sepsis Event Note - Focused Exam Date Exam was Performed: 12/28/19 Time Exam was Performed: 08:51
--- NOTE | 2019-12-28 07:30 | CT ---
INDICATION: Postoperative were abdominal pain. Recent hernia surgery. COMPARISON: None. TECHNIQUE: Noncontrast images. FINDINGS: There is a very large hiatus hernia extending above the field of view. Appearance of organo-axial volvulus. Solid viscera appears unremarkable. No adrenal nodule. No nephrolithiasis. No obstruction of large or small bowel. Diverticula of the sigmoid colon. Mild prostatomegaly. Postoperative changes of the right groin commensurate with hernia repair. Induration and fluid in the subcutaneous soft tissues at the surgical bed. Small amount of fluid at the mouth to the inguinal canal. Fat filled left inguinal hernia noted. Moderate degenerative arthrosis of the sacroiliac joints. Mild osteoarthritis of the hips. Mild degenerative disc disease in the inferior lumbar spine. Grade 1 anterolisthesis L4-5. Mild diffuse facet arthrosis in the lumbar spine. IMPRESSION: 1. Expected postoperative changes from right inguinal hernia repair. 2. Very large hiatus hernia with organoaxial volvulus extending above the field of view in the chest. Consider nonemergent surgical referral and CT of the chest and barium swallow there is preferable clinical symptoms. 3. Colonic diverticulosis. 4. Fat filled left inguinal hernia. Please note that all CT scans at this facility use dose modulation, iterative reconstruction, and/or weight-based dosing when appropriate to reduce radiation dose to as low as reasonably achievable. Dictated by Len Smiley MD @ Dec 28 2019 7:25AM Signed by Dr. Len Smiley @ Dec 28 2019 7:29AM
[2019-12-28 08:30] LABS: BLOOD UREA NITROGEN,BUN 19 mg/dL (7.0-18.0); CARBON DIOXIDE,CO2 26.8 mmol/L (21.0-32.0); CHLORIDE,CL 103 mmol/L (98-107); GLUCOSE RANDOM 112 mg/dL (74-106); SODIUM,NA 140 mmol/L (136-148)
--- NOTE | 2019-12-28 10:50 | PCM.SN ---
- Free Text/Narrative Note: pt seen, chart reviewed; note dictated; exam benign; ct, postop change; hiatal hernia, pt knew and has been followed w his surgeon, and currently no symptom; keep scheduled appointment; pt voiced understanding; [id number]
--- NOTE | 2019-12-28 16:53 | CONS ---
DATE OF CONSULTATION: 12/28/2019 DATE OF : 1960 PRIMARY CARE PHYSICIAN: Mikel Rodrigues MD REASON FOR CONSULTATION: Consult called by ER doctor, and the patient was seen shortly after. Consulting question is not feeling right on the surgical site at right inguinal area per the patient. HISTORY OF PRESENT ILLNESS: The patient is a 59-year-old obese gentleman, day number 7 from inguinal hernia repair with mesh on the right side. The patient remarked that the patient went home and everything was fine after surgery. However, the patient constipated all the time and strained down, and at the same time, the patient took medication to help him to have some cough. The patient is not a smoker, but he is taking medication to make him cough. He is aware that he is not supposed to lift heavy weight though. This morning, the patient felt something loose in the surgical site, so sought help in the emergency room. Denied increased pain. Denied fever, chills, or diarrhea. Denied wound drainage. Denied nausea, vomiting. The patient just felt something is not right at the right groin area where the surgery was. ALLERGIES: Please refer to nursing note. MEDICATIONS: Please refer to nursing note. PAST MEDICAL HISTORY: Please refer to the same-day surgery admission note. PAST SURGICAL HISTORY: Please refer to the same-day surgery admission note. FAMILY HISTORY: Noncontributory. PHYSICAL EXAMINATION: GENERAL: A very anxious gentleman, very very anxious, in no acute distress. HEENT: Normocephalic, atraumatic. Sclerae anicteric. LUNGS: Clear to auscultation. HEART: Regular rate and rhythm. ABDOMEN: Soft. GENITOURINARY: In his right inguinal surgical site stable to air and incision clean, dry, intact. No erythema. No cellulitis. No expressed material. Right scrotum is totally normal in appearance. No ecchymosis. No swelling. Testes bilaterally descended, soft, and symmetrical. Upon Valsalva, there is no bulging thing and there is no seroma observed. LABORATORY DATA: White count when seen in the emergency room was normal and CAT scan postop change, but with hiatal hernia. As a matter of fact, the patient knows that he has a large hiatal hernia, has been followed by his surgeon. IMPRESSION AND PLANNING: Benign examination. Normal CAT scan, normal white count. The patient okay to discharge after assurance and will see me in the scheduled appointment. AZAM / MILLI /[id number]
== END 2019-12-28 08:58 | disposition home or self-care (01) ==
LOC: MW.ED 06:26
DX: R10.9 Unspecified abdominal pain (principal); Z90.49 Acquired absence of other specified parts of digestive tract; I10 Essential (primary) hypertension; E78.00 Pure hypercholesterolemia, unspecified; K21.9 Gastro-esophageal reflux disease without esophagitis; M10.9 Gout, unspecified; E66.9 Obesity, unspecified; Z68.32 Body mass index [BMI] 32.0-32.9, adult; Z79.899 Other long term (current) drug therapy
CPT/HCPCS: 36415; 74176; 74176-26; 80048; 85025; 99283; 99284-25

== ENCOUNTER 2021-01-25 06:31 | Day surgery (SDC) | payer MEDICARE, OTHER ==
[~2021-01-25 06:31] MED LIST changes: -ceFAZolin 2 GM in Premix Bag 1 BAG IV ONE
[2021-01-25] MEDS ORDERED: Midazolam 1 MG/ML 2 ML SDV ONE (07:11)
[2021-01-25] MEDS ORDERED: Propofol 200 MG/20 ML SDV ONE (07:11)
[2021-01-25] MEDS ORDERED: fentaNYL 250 MCG/5 ML SDV ONE (07:11)
--- NOTE | 2021-01-25 07:14 | PCM.PREANE ---
Preanesthetic Assessment - Anesthesia/Transfusion/Family Hx Anesthesia History: Prior Anesthesia Reaction Type of Anesthesia Reaction: Excessive Somnolence Other Type of Anesthesia Reaction Comment: after right inguinal hernia repair Family History of Anesthesia Reaction: No Transfusion History: No Prior Transfusion(s) Intubation History: Unknown - Review of Systems General: No Symptoms Pulmonary: No Symptoms Cardiovascular: No Symptoms Gastrointestinal: No Symptoms Neurological: No Symptoms Other: Reports: None - Physical Assessment NPO Status Date: 01/25/21 NPO Status Time: 00:01 Vital Signs: Last Vital Signs Temp 97.3 F 01/25/21 06:37 Pulse 106 H 01/25/21 06:37 Resp 16 01/25/21 06:37 BP 144/85 H 01/25/21 06:37 Pulse Ox 97 01/25/21 06:37 Height: 6 ft 1 in Weight: 239 lb ASA Class: 2 Mental Status: Alert & Oriented x3 Airway Class: Mallampati = 2 Dentition: Reports: Normal Dentition ROM/Head Extension: Limited/Partial Lungs: Clear to Auscultation, Normal Respiratory Effort Cardiovascular: Regular Rate, Regular Rhythm - Allergies Allergies/Adverse Reactions: Allergies Allergy/AdvReac Type Severity Reaction Status Date / Time amitriptyline Allergy Nausea and Verified 01/21/21 15:03 Vomiting codeine Allergy Nausea and Verified 01/21/21 15:03 Vomiting sumatriptan [From Imitrex] Allergy Nausea and Verified 01/21/21 15:03 Vomiting topiramate [From Topamax] Allergy Nausea and Verified 01/21/21 15:03 Vomiting verapamil Allergy Nausea and Verified 01/21/21 15:03 Vomiting zolmitriptan [From Zomig] Allergy Nausea and Verified 01/21/21 15:03 Vomiting - Anesthesia Plan Pre-Op Medication Ordered: None - Acknowledgements Anesthesia Type Planned: General Anesthesia Pt an Appropriate Candidate for the Planned Anesthesia: Yes Alternatives and Risks of Anesthesia Discussed w Pt/Guardian: Yes Pt/Guardian Understands and Agrees with Anesthesia Plan: Yes Additional Comments: npo after mn htn no cv problems gout patience headaches obesity bmi 32 etoh none tob none par no questions very sleepy for hours after last hernia repair hayfever PreAnesthesia Questionnaire HEENT History: Reports: Other (See Below) Other HEENT History: wears glasses, has very dry eyes Cardiovascular History: Reports: High Cholesterol, Hypertension Respiratory History: Reports: Sleep Apnea Other Respiratory History: does not use CPAP Gastrointestinal History: Reports: GERD, Hiatal Hernia Genitourinary History: Reports: Renal Calculus Musculoskeletal History: Reports: Fracture, Gout Other Musculoskeletal History: hx of fx back Neurological History: Reports: Concussion, Headaches, Chronic, Neuropathy, Peripheral Other Neuro History: 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, 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 Psychiatric History: Reports: Anxiety Endocrine/Metabolic History: Reports: Obesity/BMI 30+ Hematologic History: Reports: Anemia Immunologic History: Reports: None Oncologic (Cancer) History: Reports: None Dermatologic History: Reports: None - Infectious Disease History Infectious Disease History: Reports: Chicken Pox - Past Surgical History Head Surgeries/Procedures: Reports: None HEENT Surgical History: Reports: None Cardiovascular Surgical History: Reports: None Respiratory Surgical History: Reports: None GI Surgical History: Reports: Hernia, Inguinal, Hernia Repair/Other Other GI Surgeries/Procedures: hx of right inguinal hernia and umbilical hernia repair Male Surgical History: Reports: Lithotripsy ([facility]) Endocrine Surgical History: Reports: None Neurological Surgical History: Reports: Discectomy, Lumbar Spine Other Neurological Surgeries/Procedures: hx back surgery Musculoskeletal Surgical History: Reports: Knee Replacement Other Musculoskeletal Surgeries/Procedures:: Left TKA '17 Oncologic Surgical History: Reports: None Dermatological Surgical History: Reports: None - SUBSTANCE USE Tobacco Use Status *Q: Never Tobacco User Recreational Drug Use History: No - HOME MEDS Home Medications: Home Meds Cholecalciferol (Vitamin D3) [Vitamin D3] 1,000 units PO DAILY 07/08/19 [History] Lisinopril 20 mg PO DAILY 07/08/19 [History] Omeprazole 20 mg PO DAILY 07/08/19 [History] allopurinoL [Zyloprim] 300 mg PO DAILY 07/08/19 [History] gemfibroziL [Lopid] 600 mg PO BID 07/08/19 [History] - CURRENT (IN HOUSE) MEDS Current Meds: Current Medications Lactated Ringer's (Ringers, Lactated) 1,000 mls @ 100 mls/hr IV ASDIRECTED [facility] Last Admin: 01/25/21 07:00 Dose: 100 mls/hr Documented by:
[2021-01-25] MEDS ORDERED: Ondansetron 4 MG/2 ML SDV ONE (07:18)
[2021-01-25] MEDS ORDERED: Dexamethasone 4 MG/ML 5 ML MDV ONE (07:18)
[2021-01-25] MEDS ORDERED: Succinylcholine/Sod PF 100 MG/5 ML SYRINGE IV ONE (07:20)
[2021-01-25] MEDS ORDERED: Bupivacaine 25%/EPINEPHrine/PF 30 ML ONE (07:31)
[2021-01-25] MEDS ORDERED: ePHEDrine 50 MG/ML SDV ONE (07:57)
[2021-01-25] MEDS ORDERED: Glycopyrrolate 0.2 MG/ML SDV ONE (09:03)
[2021-01-25] MEDS ORDERED: Ketorolac 30 MG/ML SDV ONE (09:09)
[2021-01-25] MEDS ORDERED: fentaNYL 50 MCG/ML SDV IVPUSH PRN (09:33)
[2021-01-25] MEDS ORDERED: Acetaminophen 1,000 MG in Premix Bag 1 BAG IV PRN (09:40)
[2021-01-25] MEDS ORDERED: fentaNYL 100 MCG/2 ML SDV IVPUSH PRN (09:45)
--- NOTE | 2021-01-25 10:44 | PCM.OPNOTE ---
- General Post-Op/Procedure Note Date of Surgery/Procedure: 01/25/21 Operative Procedure(s): ihr w mesh, L Findings: a very large direct ing hernia on L, no indirect; [id number] Pre Op Diagnosis: l ing hernia Post-Op Diagnosis: Same Anesthesia Technique: General ET Tube Primary Surgeon: Cedric Landaverde Complications: None Condition: Good Free Text/Narrative:: Intake & Output 01/24/21 01/25/21 01/25/21 22:59 06:59 14:59 Intake Total 1150 Output Total 50 Balance 1100
--- NOTE | 2021-01-25 11:37 | PCM.POSTAN ---
POST ANESTHESIA ASSESSMENT - MENTAL STATUS Mental Status: Alert (no anesthetic problems awake oriented), Oriented - VITAL SIGNS Vital Signs: Last Vital Signs Temp 97.3 F 01/25/21 09:57 Pulse 92 01/25/21 11:12 Resp 15 01/25/21 11:12 BP 133/76 01/25/21 11:12 Pulse Ox 95 01/25/21 11:12 - RESPIRATORY Respiratory Status: Respiratory Rate WNL, Airway Patent, O2 Saturation Stable - CARDIOVASCULAR CV Status: Pulse Rate WNL, Blood Pressure Stable - GASTROINTESTINAL GI Status: No Symptoms - POST OP HYDRATION Hydration Status: Adequate & Stable
--- NOTE | 2021-01-25 13:13 | PCM48HPAN ---
Post Anesthesia Note - EVALUATION WITHIN 48HRS OF ANESTHETIC Vital Signs in Normal Range: Yes Patient Participated in Evaluation: Yes Respiratory Function Stable: Yes Airway Patent: Yes Cardiovascular Function Stable: Yes Hydration Status Stable: Yes Pain Control Satisfactory: Yes Nausea and Vomiting Control Satisfactory: Yes Mental Status Recovered: Yes Vital Signs: Last Vital Signs Temp 97.3 F 01/25/21 09:57 Pulse 103 H 01/25/21 12:22 Resp 15 01/25/21 12:22 BP 131/80 01/25/21 12:22 Pulse Ox 95 01/25/21 12:22
--- NOTE | 2021-01-25 23:36 | OR ---
SURGEON: Cedric Landaverde MD DATE OF PROCEDURE: 01/25/2021 PREOPERATIVE DIAGNOSIS: Inguinal hernia on the left. POSTOPERATIVE DIAGNOSIS: Inguinal hernia on the left. PROCEDURE PERFORMED: Repair of above with mesh and plug. COMPLICATIONS: None. FINDINGS: A very large direct inguinal hernia on the left. No indirect hernia. PROCEDURE IN DETAIL: The patient was taken to the operating room and placed in the supine position. Upon induction of general endotracheal anesthesia, the patient's groin and inguinal area were prepped and draped in a sterile fashion. The scrotum was placed on top of the drape in case it needed to be maneuvered. An IV antibiotic was given prophylactically and after assessment of appropriate landmark, a transverse incision was made 2 fingers above inguinal crease, then carefully took down past the Elizabeth fascia and exposed the external oblique where the cord is. The external ring was also identified and using a 15 blade, a small darline was made right on top of the cord and then using a Metzenbaum scissors, carefully opened up the fiber along its direction all the way to the external ring. The spermatic cord was then carefully lifted up from the inguinal canal. A [place] drain was then used to hold on to manipulate the cord and carefully dissect out from the inguinal floor. The cremasteric muscle was then opened up. Careful examined of the cord, dissected down the cremasteric muscle, failed to delineate any indirect hernia sac, instead a large direct hernia was noted; A plug was inserted into the direct hernia and followed with a mesh to reinforce the inguninal floor. The mesh was then anchored down by using 2-0 Prolene stitches to the periosteum of the pubic symphysis, then running down to the lateral aspect of the rectus muscle. The lateral part of the mesh was then anchored to the Jignesh ligament, again using 2-0 Prolene. The last few stitches also anchored the plug to make sure the plug is not migrating. Where the cord exits out, a stitch was placed in the two tails to repair the internal ring. Upon conclusion of surgery, I used a finger to make sure the ring is not too tight and not too loose, followed with some irrigation. The external oblique was then repaired by use of 2-0 Vicryl and the recreation external ring was also tested, not too tight, not too loose, followed with 2-0 Vicryl and closed the Elizabeth fascia and the skin stapled to approximate the skin, followed by appropriate dressing. The patient was then awakened, extubated and transferred to recovery room in a hemodynamically stable condition. The patient tolerated the procedure well. There were no intraoperative complications. Dr. Landaverde was present through the whole procedure. Just before surgery, a timeout was called. The patient was identified and procedure identified and procedure started. Intraoperative findings as dictated above. As always, thank you for the kind referral. AZAM / MILLI /[id number]
== END 2021-01-25 13:04 | disposition home or self-care (01) ==
LOC: MW.SDS 06:31
PROVIDERS: ATTEND Surgery
DX: K40.90 Unilateral inguinal hernia, without obstruction or gangrene, not specified as recurrent (principal); M10.9 Gout, unspecified; E78.00 Pure hypercholesterolemia, unspecified; I10 Essential (primary) hypertension; G47.30 Sleep apnea, unspecified; E66.9 Obesity, unspecified; Z68.32 Body mass index [BMI] 32.0-32.9, adult; Z88.6 Allergy status to analgesic agent; Z88.8 Allergy status to other drugs, medicaments and biological substances; Z79.899 Other long term (current) drug therapy; Z98.890 Other specified postprocedural states
CPT/HCPCS: 49505; C1781; J0131; J0330; J0690; J1100; J1885; J2250; J2405; J2704; J3010; J3490; J7120; 00830

== ENCOUNTER 2023-08-11 17:36 | Emergency (ER) | payer MEDICARE, OTHER ==
[2023-08-11 19:49] LABS: BASOPHILS ABSOLUTE AUTO 0.09 K/uL (0.00-0.20); BASOPHILS PERCENT AUTO 1.2 % (0.0-1.0); EOSINOPHILS ABSOLUTE AUTO 0.57 K/uL (0.00-0.45); EOSINOPHILS PERCENT AUTO 7.5 % (0.0-6.0); HEMATOCRIT 41.7 % (42.0-52.0); HEMOGLOBIN 13.5 g/dL (14.0-18.0); IMMATURE GRAN ABSOLUTE AUTO 0.04 K/uL (0.00-0.05); IMMATURE GRAN PERCENT AUTO 0.5 % (0.0-0.4); LYMPHOCYTES ABSOLUTE AUTO 1.72 K/uL (1.00-4.80); LYMPHOCYTES PERCENT AUTO 22.7 % (24.0-44.0); MEAN CORPUSCULAR HEMOGLOBIN 27.4 pg (28.0-32.0); MEAN CORPUSCULAR HGB CONC 32.4 g/dL (32.0-36.0); MEAN CORPUSCULAR VOLUME 84.6 fL (83.0-99.0); MEAN PLATELET VOLUME 9.5 fL (9.4-12.4); MONOCYTES ABSOLUTE AUTO 0.96 K/uL (0.00-0.80); MONOCYTES PERCENT AUTO 12.6 % (0.0-8.0); NEUTROPHILS ABSOLUTE AUTO 4.21 K/uL (1.80-7.70); NEUTROPHILS PERCENT AUTO 55.5 % (41.0-71.0); PLATELET COUNT,PLT 207 K/uL (150-400); RED BLOOD CELL COUNT 4.93 M/uL (4.52-5.90); WHITE BLOOD CELL COUNT,WBC 7.59 K/uL (3.9-11.3)
[2023-08-11 20:10] LABS: CALCIUM 9.1 mg/dL (8.5-10.1); CARBON DIOXIDE,CO2 28.2 mmol/L (21.0-32.0); CREATININE 1.1 mg/dL (0.8-1.3); EST CRCL DRUG DOSING (CG) 79.7 mL/min
== END 2023-08-11 21:45 | disposition home or self-care (01) ==
LOC: MW.ED 17:36
DX: M79.89 Other specified soft tissue disorders (principal); I10 Essential (primary) hypertension; K21.9 Gastro-esophageal reflux disease without esophagitis; E66.9 Obesity, unspecified; Z68.39 Body mass index [BMI] 39.0-39.9, adult; Z79.899 Other long term (current) drug therapy; Z88.8 Allergy status to other drugs, medicaments and biological substances; Z88.5 Allergy status to narcotic agent
CPT/HCPCS: 36415; 80048; 83880; 85025; 93970; 93970-26; 99283; 99284

== ENCOUNTER 2024-12-07 08:08 | Emergency (ER) | payer MEDICARE, OTHER ==
[2024-12-07] MEDS ORDERED: Sodium Chloride 0.9% 10 ML Syringe FLUSH PRN (09:20)
[2024-12-07 09:28] LABS: BASOPHILS ABSOLUTE AUTO 0.05 K/uL (0.00-0.20); BASOPHILS PERCENT AUTO 0.7 % (0.0-1.0); EOSINOPHILS ABSOLUTE AUTO 0.39 K/uL (0.00-0.45); EOSINOPHILS PERCENT AUTO 5.7 % (0.0-6.0); HEMATOCRIT 47.1 % (42.0-52.0); HEMOGLOBIN 14.5 g/dL (14.0-18.0); IMMATURE GRAN ABSOLUTE AUTO 0.03 K/uL (0.00-0.05); IMMATURE GRAN PERCENT AUTO 0.4 % (0.0-0.4); LYMPHOCYTES ABSOLUTE AUTO 1.04 K/uL (1.00-4.80); LYMPHOCYTES PERCENT AUTO 15.1 % (24.0-44.0); MEAN CORPUSCULAR HEMOGLOBIN 26.1 pg (28.0-32.0); MEAN CORPUSCULAR HGB CONC 30.8 g/dL (32.0-36.0); MEAN CORPUSCULAR VOLUME 84.9 fL (83.0-99.0); MEAN PLATELET VOLUME 9.7 fL (9.4-12.4); MONOCYTES ABSOLUTE AUTO 0.61 K/uL (0.00-0.80); MONOCYTES PERCENT AUTO 8.9 % (0.0-8.0); NEUTROPHILS ABSOLUTE AUTO 4.77 K/uL (1.80-7.70); NEUTROPHILS PERCENT AUTO 69.2 % (41.0-71.0); PLATELET COUNT,PLT 244 K/uL (150-400); RED BLOOD CELL COUNT 5.55 M/uL (4.52-5.90); WHITE BLOOD CELL COUNT,WBC 6.89 K/uL (3.9-11.3)
[2024-12-07 09:54] LABS: A/G RATIO 0.8 (0.9-1.6); ALBUMIN 3.4 g/dL (3.4-5.0); BILIRUBIN TOTAL 0.8 mg/dL (0.2-1.0); CALCIUM 9.6 mg/dL (8.5-10.1); CARBON DIOXIDE,CO2 27.7 mmol/L (21.0-32.0); CREATININE 1.2 mg/dL (0.8-1.3); EST CRCL DRUG DOSING (CG) 71.21 mL/min; POTASSIUM,K 3.8 mmol/L (3.5-5.1); PROTEIN TOTAL,TP 7.5 g/dL (6.4-8.2)
== END 2024-12-07 11:10 | disposition home or self-care (01) ==
LOC: MW.ED 08:08
DX: R60.0 Localized edema (principal); R06.02 Shortness of breath; I10 Essential (primary) hypertension; K21.9 Gastro-esophageal reflux disease without esophagitis; E66.9 Obesity, unspecified; Z68.41 Body mass index [BMI] 40.0-44.9, adult; Z88.5 Allergy status to narcotic agent; Z88.8 Allergy status to other drugs, medicaments and biological substances; Z79.899 Other long term (current) drug therapy
CPT/HCPCS: 36415; 71045; 71045-26; 80053; 83880; 84484; 85025; 87428-QW; 93005; 99285

== ENCOUNTER 2025-01-25 08:36 | Day surgery (SDC) | payer MEDICARE, OTHER ==
[2025-01-25] MEDS: Lactated Ringers 1,000 ML IV SCH (09:35)
[2025-01-25] MEDS ORDERED: Propofol 200 MG/20 ML SDV ONE ×2 (10:04→11:29)
[2025-01-25] MEDS ORDERED: Lidocaine 1% 5 ML VIAL ONE (10:04)
[2025-01-25] MEDS ORDERED: Rocuronium Bromide 50 MG/5 ML Syringe ONE (10:04)
[2025-01-25] MEDS ORDERED: Succinylcholine/Sod PF 100 MG/5 ML SYRINGE IV ONE (10:05)
[2025-01-25] MEDS ORDERED: Ondansetron 4 MG/2 ML SDV ONE (12:09)
== END 2025-01-25 13:20 | disposition home or self-care (01) ==
LOC: MW.SDS 08:36
PROVIDERS: ATTEND Surgery
DX: K44.9 Diaphragmatic hernia without obstruction or gangrene (principal); K31.7 Polyp of stomach and duodenum; I10 Essential (primary) hypertension; K21.9 Gastro-esophageal reflux disease without esophagitis; E78.00 Pure hypercholesterolemia, unspecified; E03.9 Hypothyroidism, unspecified; F32.A Depression, unspecified; Z79.899 Other long term (current) drug therapy; Z88.5 Allergy status to narcotic agent; Z88.8 Allergy status to other drugs, medicaments and biological substances
CPT/HCPCS: 43239; J2003; J2405; J2704; J7120; 00731; 88305; J3490